=== PATIENT | female | born 1945 | race Caucasian/White ===

== ENCOUNTER → 2021-06-02 12:57 | Outpatient (CLI) | payer MEDICARE, OTHER, SELFPAY ==
--- NOTE | 2021-06-02 | DI.CT.S_ITS ---
PROCEDURE: CT LUMBAR SPINE WO CON INDICATIONS: Spondylosis without myelopathy or radiculopathy, l TECHNIQUE: Noncontrast 3 mm thick sections acquired from the T12 level to the sacrum. Sagittal and coronal reformats were constructed. For radiation dose reduction, the following was used: automated exposure control. COMPARISON: None. FINDINGS: Image quality: Excellent. Bones: There is mild rightward curvature of the upper lumbar spine. 5 lumbar type vertebral bodies are present by plain film. No acute vertebral body compression fractures. No suspicious lytic or blastic bony lesions. No pars defects. Multilevel degenerative disc and facet disease. Mild multifocal canal stenoses. Multilevel foraminal stenoses, worst at L1-L2 , L2-L3, and L5-S1, where there are severe foraminal stenosis with possible intraforaminal nerve root impingement. Soft tissues: No retroperitoneal masses or hematomas. Visualized aorta is normal in caliber. 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 IMPRESSION: 1. Multilevel degenerative disc and facet disease. 2. Mild multilevel canal stenosis. 3. Multilevel foraminal stenosis as described above, with possible nerve root impingement. Recommend correlation with clinical symptoms just reaching relevance of these findings. 4. 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 Dictated by: Kareem Ha M.D. on 06/02/2021 at 15:37 Approved by: Kareem Ha M.D. on 06/02/2021 at 16:38
== END ==
PROVIDERS: PCP Nurse Practitioner Family; Referring Provider Physical Medicine & Rehabilitation; Visit Provider Physical Medicine & Rehabilitation
DX: M47.816 Spondylosis without myelopathy or radiculopathy, lumbar region (principal); M48.061 Spinal stenosis, lumbar region without neurogenic claudication; M48.07 Spinal stenosis, lumbosacral region
CPT/HCPCS: 72131